=== PATIENT | male | born 1950 | race Hispanic/Latino ===

== ENCOUNTER → 2018-03-04 | Outpatient (CLI) | payer MEDICARE ==
[~2018-03-04] MED LIST: IOPAMIDOL 300MG/ML 100 ML INFUS..BTL IV ONE
[2018-03-04 11:00] LABS: BLOOD UREA NITROGEN 19 mg/dL (7-26); BUN/CREATININE RATIO 23 (6-25); CREATININE, SERUM 0.83 mg/dL (0.72-1.25); EST GLOMERULAR FILTRATION RATE > 60 ML/MIN (60-)
--- NOTE | 2018-03-04 11:55 | Diagnostic Imaging Report ---
PROCEDURE:INTRAVENOUS PYELOGRAM (IVP) TECHNIQUE:Sequential radiographs of the abdomen after ministration of 100 mL Isovue-370 intravenous contrast. INDICATION:Microscopic hematuria COMPARISON:None. FINDINGS: Packer Fuser: Normal. No irregular calcifications. Left-sided pelvic phleboliths. Symmetric uptake and excretion of intravenous contrast into normal caliber collecting systems. Ureters are normal bilaterally. Central filling defect along the urinary bladder base. Moderate to large residual volume post void. CONCLUSION: 1. Normal kidneys and collecting systems. 2. Bladder base filling defect most in keeping with prostatomegaly. 3. Moderate to large volume post void residual. Dictated by: Guicho Duncan M.D. on 03/04/2018 at 11:57 Electronically approved by: Guicho Duncan M.D. on 03/04/2018 at 11:57
== END ==
LOC: DX 09:59
PROVIDERS: ATTEND Urology
DX: R31.21 Asymptomatic microscopic hematuria (principal)
CPT/HCPCS: 36415; 74400; 82565; 84520; Q9967